=== PATIENT | female | born 2000 | race Caucasian/White ===

== ENCOUNTER 2023-09-16 19:21 | Outpatient (CLI) | payer OTHER, SELFPAY ==
[~2023-09-16] VITALS: Ht 170.2 cm; Wt 128.0 kg
[2023-09-16] MEDS ORDERED: PRENTAB9 PO (19:34)
[2023-09-16] MEDS ORDERED: ASPI81CH33 PO (19:34)
[2023-09-16] MEDS ORDERED: HOME MED LIST COMPLETE! XX SCH (19:35)
[2023-09-16 19:44] VITALS: BP 131/63; O2SAT 96
[2023-09-16 21:38] LABS: Trichomonas vaginalis (AMP) NOT DETECTED (NEGATIVE)
[2023-09-16 22:02] LABS: GC DNA AMPLIFICATION NEGATIVE (NEGATIVE)
== END 2023-09-16 20:24 | disposition home or self-care (01) ==
LOC: M LDO 19:21
PROVIDERS: ATTEND Obstetrics & Gynecology
DX: O26.893 Other specified pregnancy related conditions, third trimester (principal); N89.8 Other specified noninflammatory disorders of vagina; Z3A.29 29 weeks gestation of pregnancy; Z79.82 Long term (current) use of aspirin
CPT/HCPCS: 59025; 87070; 87661; 87810; 87850; G0463

== ENCOUNTER 2025-01-03 10:23 | Emergency (ER) | payer OTHER ==
[~2025-01-03] VITALS: Ht 170.2 cm; Wt 119.8 kg
[~2025-01-03 10:23] MED LIST: ASPI81CH33 PO; PRENTAB9 PO
[2025-01-03 12:17] LABS: KETONE, URINE AUTO RFX NEGATIVE (NEGATIVE); LEUKOCYTE ESTERASE UR AUTO RFX NEGATIVE (NEGATIVE); NITRITE, URINE AUTO RFX NEGATIVE (NEGATIVE); RBC, URINE AUTO RFX 11 /HPF (0-3); SQUAM EPITHELIAL CELL UR AURFX 1 /HPF (0-6); WBC, URINE AUTO RFX 0 /HPF (0-3)
[2025-01-03 12:19] LABS: BASO # 0.1 10^3/uL (0.0-0.2); BASO % 0.6 % (0.0-1.0); EOS # 0.1 10^3/uL (0.0-0.5); EOS % 0.9 % (0.0-3.0); LYMPH # 1.7 10^3/uL (1.5-5.0); LYMPH % 16.3 % (24.0-44.0); MONO # 0.6 10^3/uL (0.0-0.8); MONO % 5.9 % (2.0-8.0); NEUTROPHILS # 7.8 10^3/uL (1.5-8.5); NEUTROPHILS % 75.9 % (36.0-66.0); PLATELET COUNT, AUTOMATED 356 10^3/uL (150-450)
[2025-01-03 12:49] LABS: HCG, SERUM QUANTITATIVE 13.4 MIU/ML (<4.2)
[2025-01-03 12:50] LABS: CALCIUM LEVEL 8.9 MG/DL (8.5-10.1); CARBON DIOXIDE LEVEL 26 MMOL/L (20-31); CHLORIDE LEVEL 105 MMOL/L (98-107); CREATININE FOR GFR 0.67 MG/DL (0.55-1.30); GLOMERULAR FILTRATION RATE > 90.0 (>60); POTASSIUM SERUM 4.2 MMOL/L (3.5-5.1); SODIUM LEVEL 139 MMOL/L (136-145)
[2025-01-03 14:30] VITALS: BP 149/76
[2025-01-03 14:35] VITALS: TEMP 99.1; O2SAT 100
== END 2025-01-03 15:14 | disposition home or self-care (01) ==
LOC: M ED 10:23
DX: O20.0 Threatened abortion (principal); Z3A.00 Weeks of gestation of pregnancy not specified; Z79.1 Long term (current) use of non-steroidal anti-inflammatories (NSAID); Z79.810 Long term (current) use of selective estrogen receptor modulators (SERMs)

== ENCOUNTER → 2025-03-27 | Outpatient (REF) | payer OTHER | LOC: M PLALAB 11:24 | PROVIDERS: ATTEND Nurse Practitioner Family | DX: Z53.9 Procedure and treatment not carried out, unspecified reason (principal) ==